=== PATIENT | male | born 1955 | race Caucasian/White ===

== ENCOUNTER → 2017-08-28 | Outpatient (CLI) | payer OTHER ==
--- NOTE | 2017-08-28 15:04 | CARD ---
APPROVED REPORT EXAM: Two-dimensional and M-mode echocardiogram with Doppler and color Doppler. Other Information HR: 63bpm INDICATION Hypertension/HCVD 2D DIMENSIONS RVDd3.4 (2.9-3.5cm)Left Atrium(2D)4.0 (1.6-4.0cm) IVSd1.0 (0.7-1.1cm)Aortic Root(2D)3.9 (2.0-3.7cm) LVDd4.6 (3.9-5.9cm)LVOT Diameter2.2 (1.8-2.4cm) PWd1.0 (0.7-1.1cm)LVDs2.7 (2.5-4.0cm) FS (%) 40.4 %SV68.0 ml LVEF(%)71.2 (>50%) Aortic Valve AoV Peak Chavez.105.4cm/sAoV VTI21.4cm AO Peak GR.4.4mmHgLVOT Peak Chavez.88.9cm/s AO Mean GR.3mmHgAVA (VMAX)3.11cm2 Mitral Valve MV E Nerwivls49.4cm/sMV DECEL [id number] MV A Xoubqnnp50.6cm/sE/A Ratio0.9 Pulmonary Valve PV Peak Yjoskiiv00.9cm/sPV Peak Grad.4mmHg Pulmonary Vein S1 Ahwgsyxu94.6cm/sD2 Nnpyjdoj45.2cm/s LEFT VENTRICLE The left ventricle is normal size. There is normal left ventricular wall thickness. The left ventricu lar systolic function is normal and the ejection fraction is within normal range. EF 55% There is nor mal LV segmental wall motion. The left ventricular diastolic function and filling is normal for age. RIGHT VENTRICLE The right ventricle is normal size. The right ventricular systolic function is normal. ATRIA The left atrium size is normal. The right atrium size is normal. The interatrial septum is intact wit h no evidence for an atrial septal defect or patent foramen ovale as noted on 2-D or Doppler imaging. AORTIC VALVE The aortic valve is normal in structure and function. Doppler and Color Flow revealed no significant aortic regurgitation. There is no significant aortic valvular stenosis. There is no aortic valvular v egetation. MITRAL VALVE The mitral valve is moderately thickened but opens well. There is no evidence of mitral valve prolaps e. There is no mitral valve stenosis. Doppler and Color-flow revealed trace mitral regurgitation. TRICUSPID VALVE The tricuspid valve leaflets are thickened , but open well. Doppler and Color Flow revealed no tricus pid valve regurgitation noted. There is no tricuspid valve prolapse or vegetation. There is no tricus pid valve stenosis. PULMONIC VALVE Doppler and Color Flow revealed trace to mild pulmonic valvular regurgitation. There is no pulmonic v alvular stenosis. GREAT VESSELS The aortic root is mildly enlarged. The IVC is normal in size and collapses >50% with inspiration. PERICARDIAL EFFUSION There is no evidence of significant pericardial effusion. Critical Notification Critical Value: No <Conclusion> The left ventricular systolic function is normal and the ejection fraction is within normal range. EF 55% There is normal LV segmental wall motion.
== END | disposition home or self-care (01) ==
LOC: ECHO 07:48
PROVIDERS: ATTEND Internal Medicine Cardiovascular Disease
DX: I10 Essential (primary) hypertension (principal); I34.0 Nonrheumatic mitral (valve) insufficiency; I77.810 Thoracic aortic ectasia
CPT/HCPCS: 93306

== ENCOUNTER → 2018-05-13 | Outpatient (CLI) | payer OTHER ==
--- NOTE | 2018-05-13 14:35 | RAD ---
Two-view right hip and two-view right femur dated 05/13/2018. No comparison available. Clinical data indication: Pain after injury. FINDINGS: Single AP view pelvis shows normal bony alignment. No displaced fracture. Pelvic ring is intact. Mild degenerative change of the bilateral hip joint and pubic symphysis. Mild degenerative change SI joint. 2 views of right hip and right femur show normal bony alignment. No displaced fracture. No periostitis or bone destruction. No acute osseous or articular abnormality. IMPRESSION: 1. No evidence of displaced fracture. If there is persistent clinical concern for occult fracture or insufficiency fracture, MRI could better evaluate. 2. Degenerative changes as described above. Electronically signed by: Anthony Prescott MD (05/13/2018 2:31 PM) [id number]
== END | disposition home or self-care (01) ==
LOC: DXRAD 14:01
PROVIDERS: ATTEND Family Medicine
DX: M47.898 Other spondylosis, sacral and sacrococcygeal region (principal); M25.551 Pain in right hip; I10 Essential (primary) hypertension
CPT/HCPCS: 73502; 73552

== ENCOUNTER → 2021-05-24 | Outpatient (CLI) | payer BC, OTHER ==
--- NOTE | 2021-05-24 18:29 | CARD ---
MR#: [id number] Date of Study: 05/24/2021 Ordering Physician: DELORES DENT, Referring Physician: DELORES DENT, Tech: Aurelia Daljuliagena, [facility] APPROVED REPORT EXAM: Two-dimensional and M-mode echocardiogram with Doppler and color Doppler. Other Information Quality : GoodHR: 53bpm INDICATION Hypertension/HCVD 2D DIMENSIONS RVDd3.7 (2.9-3.5cm)Left Atrium(2D)3.9 (1.6-4.0cm) IVSd1.0 (0.7-1.1cm)Aortic Root(2D)3.9 (2.0-3.7cm) LVDd4.9 (3.9-5.9cm)LVOT Diameter2.1 (1.8-2.4cm) PWd1.0 (0.7-1.1cm)LVDs2.9 (2.5-4.0cm) FS (%) 40.3 %SV78.8 ml Aortic Valve AoV Peak Chavez.129.4cm/sAoV VTI25.0cm AO Peak GR.6.7mmHgLVOT Peak Chavez.125.5cm/s LVOT VTI 26.71cmAO Mean GR.3mmHg PAULINA (VMAX)3.74bj5VNJ (VTI)3.60cm2 Mitral Valve MV E Dwknnjip04.9cm/sMV E Peak Gr.2mmHg MV DECEL [id number] A Ymcyjwbu11.5cm/s E/A Ratio1.1 Pulmonary Valve PV Peak Rrhbzwdl36.8cm/sPV Peak Grad.2mmHg Tricuspid Valve TR P. Nlqhjkli989mv/sRAP [id number] TR Peak Gr.29suTcNJBD11wdUy Pulmonary Vein S1 Lcnachhx02.3cm/sD2 Viflmybh19.2cm/s LEFT VENTRICLE The Left Ventricle is mildly dilated. There is normal left ventricular wall thickness. The left ventr icular systolic function is normal and the ejection fraction is within normal range. The Ejection Fra ction is 50-55%. There is normal LV segmental wall motion. Transmitral Doppler flow pattern is Grade II-pseudonormal filling dynamics. RIGHT VENTRICLE The right ventricle is mildly dilated. There is normal right ventricular wall thickness. The right ve ntricular systolic function is normal. ATRIA The left atrium size is normal. The right atrium is borderline dilated. The interatrial septum is int act with no evidence for an atrial septal defect or patent foramen ovale as noted on 2-D or Doppler i maging. AORTIC VALVE The aortic valve is normal in structure and function. Doppler and Color Flow revealed no significant aortic regurgitation. There is no significant aortic valvular stenosis. Calculated aortic valve area is 3.8 cm2 with maximum pressure gradient of 7 mmHg and mean pressure gradient of 4 mmHg. MITRAL VALVE The mitral valve is normal in structure and function. There is no evidence of mitral valve prolapse. There is no mitral valve stenosis. Doppler and Color-flow revealed trace mitral regurgitation. TRICUSPID VALVE The tricuspid valve is normal in structure and function. Doppler and Color Flow revealed trace tricus pid regurgitation with an estimated PAP of 30 mmHg. There is no tricuspid valve stenosis. PULMONIC VALVE The pulmonary valve is normal in structure and function. Doppler and Color Flow revealed trace pulmon ic valvular regurgitation. GREAT VESSELS The aortic root is mildly enlarged measuring 3.9 cm. The ascending aorta is normal in size. The IVC i s normal in size and collapses >50% with inspiration. PERICARDIAL EFFUSION There is no evidence of significant pericardial effusion. Critical Notification Critical Value: No <Conclusion> The Left Ventricle is mildly dilated. The left ventricular systolic function is normal and the ejection fraction is within normal range. The Ejection Fraction is 50-55%. Doppler and Color Flow revealed no significant aortic regurgitation. There is no significant aortic valvular stenosis. Doppler and Color-flow revealed trace mitral regurgitation. Doppler and Color Flow revealed trace tricuspid regurgitation with an estimated PAP of 30 mmHg. The aortic root is mildly enlarged measuring 3.9 cm. Signed by : Sha Johnson MD Electronically Approved : 05/24/2021 18:28:58
== END ==
LOC: ECHO 07:42
PROVIDERS: ATTEND Internal Medicine Cardiovascular Disease
DX: I10 Essential (primary) hypertension (principal)
CPT/HCPCS: 93306